=== PATIENT | male | born 1960 | race Caucasian/White ===

== ENCOUNTER → 2024-06-07 14:34 | Outpatient (REF) | payer MEDICARE, SELFPAY | LOC: RCS 14:34 | PROVIDERS: ATTENDING PHYSICIAN Internal Medicine Interventional Cardiology; FAMILY PHYSICIAN Family Medicine | DX: R00.2 Palpitations (principal) | CPT/HCPCS: 93306 ==

== ENCOUNTER → 2024-07-03 15:18 | Outpatient (REF) | payer MEDICARE, SELFPAY | LOC: DHSLP 15:18 | PROVIDERS: ATTENDING PHYSICIAN Internal Medicine Cardiovascular Disease; FAMILY PHYSICIAN Family Medicine | DX: G47.30 Sleep apnea, unspecified (principal); R06.83 Snoring | CPT/HCPCS: 95800 ==